=== PATIENT | male | born 1950 | race Native Hawaiian/Other Pacific Islander ===

== ENCOUNTER 2016-10-01 08:19 | Outpatient (CLI) | payer OTHER ==
[~2016-10-01] VITALS: Ht 218.4 cm; Wt 127.0 kg
== END 2016-10-01 23:31 | disposition home or self-care (01) ==
LOC: NM 08:19
DX: R07.89 Other chest pain (principal); R06.02 Shortness of breath; I10 Essential (primary) hypertension; R94.31 Abnormal electrocardiogram [ECG] [EKG]; E11.9 Type 2 diabetes mellitus without complications
CPT/HCPCS: 93306; A9500; J2785

== ENCOUNTER 2016-10-02 11:57 | Outpatient (CLI) | payer OTHER | END 2016-10-02 23:45 | disposition home or self-care (01) | LOC: US 11:57 | DX: R07.89 Other chest pain (principal); I10 Essential (primary) hypertension; R94.31 Abnormal electrocardiogram [ECG] [EKG]; E11.9 Type 2 diabetes mellitus without complications ==

== ENCOUNTER 2016-11-21 12:44 | Outpatient (CLI) | payer OTHER ==
[2016-11-21 13:36] LABS: POTASSIUM 4.3 mmol/L (3.6-5.2); SODIUM 138 mmol/L (136-145)
[2016-11-21 13:48] LABS: PLATELET COUNT 282 K/uL (142-355)
== END 2016-11-21 13:44 | disposition home or self-care (01) ==
LOC: LABW 12:44
PROVIDERS: Specialist
DX: Z01.810 Encounter for preprocedural cardiovascular examination (principal); R07.2 Precordial pain; R93.1 Abnormal findings on diagnostic imaging of heart and coronary circulation
CPT/HCPCS: 36415; 80053; 85027

== ENCOUNTER 2016-11-28 10:26 | Outpatient (CLI) | payer OTHER ==
[2016-11-28 10:54] LABS: POTASSIUM 4.2 mmol/L (3.6-5.2); SODIUM 135 mmol/L (136-145)
== END 2016-11-28 21:03 | disposition home or self-care (01) ==
LOC: LABW 10:26
PROVIDERS: Nurse Practitioner Adult Health
DX: Z79.899 Other long term (current) drug therapy (principal)
CPT/HCPCS: 36415; 80048

== ENCOUNTER 2016-12-09 15:20 | Outpatient (CLI) | payer OTHER ==
[2016-12-09 15:32] LABS: PLATELET COUNT 309 K/uL (142-355)
[2016-12-09 15:47] LABS: POTASSIUM 4.1 mmol/L (3.6-5.2); SODIUM 138 mmol/L (136-145)
== END 2016-12-09 16:20 | disposition home or self-care (01) ==
LOC: LABW 15:20
PROVIDERS: Nurse Practitioner Adult Health
DX: I20.0 Unstable angina (principal)
CPT/HCPCS: 36415; 80048; 85027

== ENCOUNTER 2016-12-13 11:37 | Outpatient (CLI) | payer OTHER ==
[2016-12-13 12:29] LABS: POTASSIUM 4.3 mmol/L (3.6-5.2); SODIUM 137 mmol/L (136-145)
== END 2016-12-13 19:09 | disposition home or self-care (01) ==
LOC: LABW 11:37
PROVIDERS: Nurse Practitioner Adult Health
DX: Z79.899 Other long term (current) drug therapy (principal); E11.9 Type 2 diabetes mellitus without complications
CPT/HCPCS: 36415; 80048

== ENCOUNTER 2019-06-22 08:26 | Outpatient (CLI) | payer OTHER | END 2019-06-22 19:29 | disposition home or self-care (01) | LOC: CT 08:26 | DX: J44.9 Chronic obstructive pulmonary disease, unspecified (principal); R07.89 Other chest pain; I10 Essential (primary) hypertension | CPT/HCPCS: 36415; 82565; 84520; Q9963 ==

== ENCOUNTER 2022-06-25 08:32 | Outpatient (CLI) | payer OTHER ==
[~2022-06-25] VITALS: Ht 177.8 cm; Wt 121.1 kg
== END 2022-06-25 20:29 | disposition home or self-care (01) ==
LOC: US 08:32 → NM 08:45 → US 20:29
PROVIDERS: ATTEND Nurse Practitioner
DX: I10 Essential (primary) hypertension (principal); I25.10 Atherosclerotic heart disease of native coronary artery without angina pectoris; R07.89 Other chest pain
CPT/HCPCS: A9500; J2785

== ENCOUNTER 2022-07-05 14:53 | Outpatient (CLI) | payer OTHER ==
[2022-07-05 15:13] LABS: PLATELET COUNT 254 K/uL (142-355)
[2022-07-05 15:30] LABS: POTASSIUM 4.1 mmol/L (3.6-5.2)
== END 2022-07-05 19:32 | disposition home or self-care (01) ==
LOC: LABW 14:53
PROVIDERS: ATTEND Nurse Practitioner Family
DX: I10 Essential (primary) hypertension (principal); I25.10 Atherosclerotic heart disease of native coronary artery without angina pectoris; Z01.810 Encounter for preprocedural cardiovascular examination
CPT/HCPCS: 36415; 80048; 85027